=== PATIENT | female | born 1990 | race African-American/Black ===

== ENCOUNTER 2023-05-10 06:40 | Outpatient (CLI) | payer OTHER, SELFPAY ==
--- NOTE | ~2023-05-10 | CT_ITS ---
Noncontrast CT scan of the right shoulder CLINICAL HISTORY: Chronic pain TECHNIQUE: Axial noncontrast imaging of the right shoulder was performed. Sagittal and coronal reform atted images were constructed. Dose reduction technique was used on this scan by utilizing automated exposure control and iterative reconstruction technique. The dose-length product (DLP) was 137.52 mGy -cm. Findings: No fracture or dislocation seen. Osseous alignment is anatomic. Joint spaces are preserved. No degenerative or erosive change. No gross soft tissue abnormality seen. Musculature appears unremarkable. No joint effusion evident. S ubcutaneous soft tissues are unremarkable. No mass lesion or fluid collection seen. IMPRESSION: No significant abnormality seen. Consider follow-up MR to better assess the soft tissue structures ab out the shoulder, as clinically indicated. Reviewed, dictated and finalized at [facility]. EMS TEST TECHNICIAN IMPRESSION: No significant abnormality seen. Consider follow-up MR to better assess the sof t tissue structures about the shoulder, as clinically indicated.
== END 2023-05-10 06:41 | disposition home or self-care (01) ==
LOC: ANHIMG 06:44
PROVIDERS: PCP Physician Assistant; Visit Provider Physician Assistant
DX: M25.511 Pain in right shoulder (principal); G89.29 Other chronic pain
CPT/HCPCS: 73200